=== PATIENT | male | born 1980 | race Caucasian/White ===

== ENCOUNTER 2022-08-29 13:24 | Emergency (ER) | payer OTHER, SELFPAY ==
[2022-08-29 13:25] VITALS: BP 116/80; PULSE 76; RESP 18; TEMP 36.6; O2SAT 97; BMI 16.9
--- NOTE | 2022-08-29 13:34 | DI.RAD.S_ITS ---
PROCEDURE: XR FINGER RT MIN 2V INDICATIONS: fall, deformity TECHNIQUE: AP hand, 2 views of the 5th finger(s) acquired. COMPARISON: None. FINDINGS: Bones: There is dorsal and medial dislocation at the 5th PIP joint by one full shaft width. No visible fracture fragments. Other joints are in normal alignment. Soft tissues: No suspicious soft tissue calcifications. IMPRESSION: 1. Dorsal and medial 5th PIP joint dislocation. Recommend reimaging following reduction to assess for tiny fractures. Dictated by: Krista Pastor M.D. on 08/29/2022 at 13:25 Approved by: Krista Pastor M.D. on 08/29/2022 at 13:26
--- NOTE | 2022-08-29 14:13 | DI.RAD.S_ITS ---
PROCEDURE: XR FINGER RT MIN 2V INDICATIONS: 5th digit post reduction TECHNIQUE: Three views of the right 5th finger(s) acquired. COMPARISON: [facility], , XR FINGER RT MIN 2V, 08/29/2022, 13:35. FINDINGS: Bones: Successful 5th PIP joint reduction. No visible fractures. Soft tissues: No suspicious soft tissue calcifications. IMPRESSION: No visible fracture post successful 5th PIP joint reduction. Dictated by: Krista Pastor M.D. on 08/29/2022 at 13:43 Approved by: Krista Pastor M.D. on 08/29/2022 at 13:44
--- NOTE | 2022-08-29 14:16 | ED_ITS ---
HPI - Extremity Injury (Upper) <Cheryle Dumont PA-C - Last Filed: 08/29/22 15:53> General Chief Complaint: Extremity Injury, Upper Stated Complaint: sent by [facility] dislocated RT jelena Time Seen by Provider: 08/29/22 14:02 Source: patient Mode of arrival: Ambulatory History of Present Illness HPI narrative: This is a 42-year-old male who presents from the walk-in clinic with concern for finger dislocation of his right pinky. Patient states that he sustained his injury in the last few hours when he lost his balance and fell forward with his hand outstretched a catch himself. He states he fell onto a rock and mud surface. He denies other injuries or concerns. He states he did try to pull on his finger to get it back into alignment but was unsuccessful. He denies previous injury or surgery to the affected digit. Also denies any current pain, numbness or tingling. Patient declines Tylenol or ibuprofen but accepts ice. Review of Systems <Cheryle Dumont PA-C - Last Filed: 08/29/22 15:53> Review of Systems Narrative: Unremarkable except as noted in the HPI Exam <Cheryle Dumont PA-C - Last Filed: 08/29/22 15:53> Initial Vital Signs Initial Vital Signs: Vital Signs Temperature 97.8 F 08/29/22 13:25 Pulse Rate 76 08/29/22 13:25 Respiratory Rate 18 08/29/22 13:25 Blood Pressure 116/80 08/29/22 13:25 Pulse Oximetry 97 08/29/22 13:25 Oxygen Delivery Method 08/29/22 13:25 HENTN Head: normal to inspection Eyes General: Yes appearance normal, both eyes and all related structures Pupils: PERRL Resp Effort & Inspection: normal respiratory effort Cardio Rate: regular rate Rhythm: regular rhythm Skin General: no rashes or lesions noted and No pallor Extrem Right upper extremity: hand Details: abnormal ROM of finger Details: unable to flex or extend Location: of the 5th digit (dislocated at the PIP, with medial distraction) Other: Sensation is intact, capillary refill is less than 2 seconds of the affected 5th digit. Skin is pink. Skin is on broken. <Merlyn Robles DO - Last Filed: 08/30/22 08:29> Initial Vital Signs Initial Vital Signs: Vital Signs Temperature 97.8 F 08/29/22 13:25 Pulse Rate 76 08/29/22 13:25 Respiratory Rate 18 08/29/22 13:25 Blood Pressure 116/80 08/29/22 13:25 Pulse Oximetry 97 08/29/22 13:25 Oxygen Delivery Method 08/29/22 13:25 Procedures <Cheryle Dumont PA-C - Last Filed: 08/29/22 15:53> Orthopedic Joint Reduction Joint #1: Time of procedure: 14:10 Time Out Performed: Yes Side: right Joint Reduction Location: finger (5th digit PIP) Analgesia: none Technique used: traction/counter-traction Post-reduction neuro exam: intact Post-reduction vascular: intact Post Reduction X-Ray Obtained: Yes Post Reduction X-Ray Results: reduced (no fractures seen) Splint Applied: Yes (foam/alumnum volar finger splint) Patient Tolerated Procedure: Well Course <Cheryle Dumont PA-C - Last Filed: 08/29/22 15:53> Orders Ordered: ED Orders 08/29/22 13:34 XR finger RT min 2V Stat 08/29/22 14:13 XR finger RT min 2V Stat Vital Signs Vital signs: Vital Signs - 8 hr 08/29/22 13:25 08/29/22 15:25 Temperature 97.8 F Pulse Rate 76 62 Respiratory Rate 18 16 Blood Pressure 116/80 132/80 Pulse Oximetry 97 98 Oxygen Delivery Method Room Air Room Air <Merlyn Robles DO - Last Filed: 08/30/22 08:29> Orders Ordered: ED Orders 08/29/22 13:34 XR finger RT min 2V Stat 08/29/22 14:13 XR finger RT min 2V Stat Vital Signs Vital signs: Vital Signs - 8 hr 08/29/22 13:25 08/29/22 15:25 Temperature 97.8 F Pulse Rate 76 62 Respiratory Rate 18 16 Blood Pressure 116/80 132/80 Pulse Oximetry 97 98 Oxygen Delivery Method Room Air Room Air MDM - Extremity Injury (Upper) <GAMALIEL Stewart Last Filed: 08/29/22 15:53> Medical Records Medical records narrative: I was provider caring for this patient during his emergency department stay. I reviewed the patient's pre and postreduction imaging with attending physician Dr. Robles and discussed reduction procedure prior to performing it. Imaging Data Extremity x-ray #1: Radiologist's Impression: [address] [id number] XRay Report Signed Patient: William Jacobson MR#: [id number] : 1980 Acct:[id number] Age/Sex: 42 / M Date of Service: 08/29/22 Loc: ED Accession Number: [id number] ?? Procedure: XR finger RT min 2V Ordering Provider: Merlyn Robles D.O. PROCEDURE:? XR FINGER RT MIN 2V ? INDICATIONS:? fall, deformity ? TECHNIQUE:? AP hand, 2 views of the 5th finger(s) acquired.? ? COMPARISON:? None. ? FINDINGS:? ? Bones:? There is dorsal and medial dislocation at the 5th PIP joint by one full shaft width.? No visible fracture fragments.? Other joints are in normal alignment. ? Soft tissues:? No suspicious soft tissue calcifications.? ? IMPRESSION:? ? 1. Dorsal and medial 5th PIP joint dislocation.? Recommend reimaging following reduction to assess for tiny fractures.? ? ? Dictated by: Krista Pastor M.D. on 08/29/2022 at 13:25 ? ? Approved by: Krista Pastor M.D. on 08/29/2022 at 13:26?? Extremity x-ray #2: Radiologist's Impression: [address] [address] XRay Report Signed Patient: William Jacobson MR#: [id number] : 1980 Acct:[id number] Age/Sex: 42 / M Date of Service: 08/29/22 Loc: ED Accession Number: [id number] ?? Procedure: XR finger RT min 2V Ordering Provider: Cheryle Dumont P.A-C PROCEDURE:? XR FINGER RT MIN 2V ? INDICATIONS:? 5th digit post reduction ? TECHNIQUE:? Three views of the right 5th finger(s) acquired.? ? COMPARISON:? [facility], XR FINGER RT MIN 2V, 08/29/2022, 13:35. ? FINDINGS:? ? Bones:? Successful 5th PIP joint reduction.? No visible fractures. ? Soft tissues:? No suspicious soft tissue calcifications.? ? IMPRESSION:? No visible fracture post successful 5th PIP joint reduction. ? ? Dictated by: Krista Pastor M.D. on 08/29/2022 at 13:43 ? ? Approved by: Krista Pastor M.D. on 08/29/2022 at 13:44?? MDM Narrative Medical decision making narrative: This is a well-appearing 42-year-old male who presents with concern for dislocation of his right 5th digit at the PIP. Sustained from a fall today with no other injuries or complaints. Patient was neurovascularly intact on initial presentation and reduction was performed without analgesia or block as above in procedures he tolerated this well. Was still neurovascularly intact after the procedure. Postreduction x-rays were obtained which show reduction of the d islocation with no evidence of fracture. Patient was discharged with advice to keep his finger splinted for the next 7-10 days may do gentle careful range of motion exercises to keep my ability intact and use caution for the next 2-3 weeks until it heals completely. Return precautions provided, follow-up plan discussed, all questions answered. Discharge Plan Departure Patient Disposition: Home Clinical Impression: Dislocation closed, finger Activity Restrictions/Additional Instructions: Thank you for letting us be part of your care today in the emergency department. I am sorry that you injured her finger today when he fell. Thankfully we were able to reduce it and get it back in the right alignment. It appears to be intact vascularly with normal sensation. You will want to be very cautious about using your finger and moving it over the next 7-10 days. You should do some very gentle [id number] exercises with controlled movements using your other hand when it is not in a splint (this will allow the joints to stay mobile while it is having a chance to heal) however you should keep it in a splint most of the time and not not be using it a lot until it is had some chance to heal. If you have concerned that it is not improving or worsening please do not hesitate to be re-evaluated. I recommend follow-up with your primary care provider for reassessment in about 2 weeks' time. Tylenol and ibuprofen are good options for pain control, over the next 24 hours you may want to keep it elevated on a pillow when he had the chance, may want to consider icing it. Referrals: Franky Han MD [Primary Care Provider] - Stand Alone Forms: Patient Portal/API <Merlyn Robles DO - Last Filed: 08/30/22 08:29> Cosign ED Attending Cosignature Attestation: I was immediately available in the department for consultation. Documentation has been reviewed. Case was discussed, imaging was reviewed. Patient had good alignment after reduction does not appear to have fracture.
[2022-08-29 15:25] VITALS: BP 132/80; PULSE 62; RESP 16; O2SAT 98
== END 2022-08-29 15:29 | disposition home or self-care (01) ==
PROVIDERS: Emergency Provider Student in an Organized Health Care Education/Training Program; PCP Family Medicine
DX: S63.296A Dislocation of distal interphalangeal joint of right little finger, initial encounter (principal); W18.30XA Fall on same level, unspecified, initial encounter
CPT/HCPCS: 26770; 73140; 99283; 99284